=== PATIENT | female | born 1980 | race Caucasian/White ===

== ENCOUNTER 2019-10-10 12:26 | Inpatient (IN) | payer OTHER ==
[~2019-10-10] VITALS: Ht 170.2 cm; Wt 81.0 kg
[2019-10-10 12:47] VITALS: BP 131/86
[2019-10-10 13:05] LABS: BASOPHILS # (AUTO) 0.02 x10^3/uL (0-0.1); BASOPHILS % (AUTO) 0 % (0-1); EOSINOPHILS # (AUTO) 0.02 x10^3/uL (0-0.4); EOSINOPHILS % (AUTO) 0 % (1-7); LYMPHOCYTES # (AUTO) 0.85 x10^3/uL (1-3.4); LYMPHOCYTES % (AUTO) 12 % (22-44); MD NO; MEAN CORPUSCULAR HEMOGLOBIN 32.7 pg (27.0-34.8); MEAN CORPUSCULAR HGB CONC 33.4 g/dL (32.4-35.8); MEAN PLATELET VOLUME 7.5 fL (7.4-10.4); MONOCYTES # (AUTO) 0.54 x10^3/uL (0.2-0.8); MONOCYTES % (AUTO) 8 % (2-9); NEUTROPHILS # (AUTO) 5.72 x10^3/uL (1.8-6.8); NEUTROPHILS % (AUTO) 80 % (42-75); PLATELET COUNT 228 x10^3/uL (130-400); RED BLOOD COUNT 4.09 x10^6/uL (3.82-5.3); RED CELL DISTRIBUTION WIDTH 12.8 % (9.6-15.2)
[2019-10-10 13:16] LABS: ALBUMIN 2.4 g/dL (3.4-5.0); ANION GAP 8 mmol/L (5-15); CALCIUM 8.8 mg/dL (8.5-10.1); CHLORIDE 108 mmol/L (98-107)
[2019-10-10 13:19] LABS: ALANINE AMINOTRANSFERASE 285 U/L (12-78); ALKALINE PHOSPHATASE 183 U/L (45-117); BILIRUBIN,TOTAL 0.5 mg/dL (0.2-1.0); CREATININE 0.76 mg/dL (0.55-1.02); TOTAL PROTEIN 6.6 g/dL (6.4-8.2)
[2019-10-10 13:47] LABS: MICROSCOPIC INDICATED
[2019-10-10 13:58] LABS: CREATININE,URINE RANDOM 21.5 mg/dL
[2019-10-10] MEDS ORDERED: OXYTOCIN 30U/ 0.9% NaCL 500ML 500 ML IV ONE (14:18)
[2019-10-10] MEDS ORDERED: FENTANYL PF 100 MCG/2ML IVPush PRN (14:30)
[2019-10-10] MEDS ORDERED: TERBUTALINE 1 MG/ML, 1ML SQ PRN (14:30)
[2019-10-10] MEDS ORDERED: MAGNESIUM SULFATE PMX 4GM/100M 100 ML IVPB ONE (14:30)
[2019-10-10] MEDS ORDERED: TERBUTALINE 1 MG/ML, 1ML IVPush PRN (14:30)
[2019-10-10] MEDS ORDERED: METOCLOPRAMIDE 5 MG/ML, 2ML IVPush PRN (14:30)
[2019-10-10] MEDS ORDERED: MISOPROSTOL 25 MCG TABLET VG PRN (14:30)
[2019-10-10] MEDS ORDERED: SODIUM CITRATE/CITRIC ACID 30 ML UDC PO PRN (14:30)
[2019-10-10] MEDS ORDERED: FENTANYL PF 100 MCG/2ML IV PRN (14:30)
[2019-10-10] MEDS ORDERED: ONDANSETRON 2MG/ML, 2ML IVPush PRN (14:30)
[2019-10-10] MEDS: LACTATED RINGERS 1,000 ML IV PRN (14:53)
[2019-10-10] MEDS ORDERED: MAGNESIUM SULFATE PMX 4GM/100M 100 ML ONE (14:57)
[2019-10-10] MEDS ORDERED: LIDOCAINE 1%, 20ML ONE (15:05)
[2019-10-10] MEDS ORDERED: MISOPROSTOL 25 MCG TABLET ONE ×2 (15:05→22:04)
[2019-10-10] MEDS ORDERED: MISOPROSTOL 200 MCG TABLET ONE (15:06)
[2019-10-10] MEDS ORDERED: OXYTOCIN 30U/ 0.9% NaCL 500ML 500 ML ONE (15:06)
[2019-10-10] MEDS ORDERED: NEWBORN KIT ONE (15:06)
[2019-10-10] MEDS: MAGNESIUM SULF. PMX 20GM/500ML 500 ML IV SCH ×2 (15:27→23:55)
[2019-10-10] MEDS ORDERED: LACTATED RINGERS 1,000 ML IVBOLUS PRN ×2 (15:30→20:00)
[2019-10-10] MEDS ORDERED: FENTANYL/BUPIV./NS/PF 250 ML EPIDCONT ONE (15:30)
[2019-10-10] MEDS ORDERED: FENTANYL PF 500 MCG, BUPIVACAINE/PF 0.5%, 30ML 62.5 ML in SODIUM CHLORIDE 0.9% 177.5 ML EPIDCONT ONE (16:00)
[2019-10-10] MEDS ORDERED: FENTANYL PF 500 MCG, BUPIVACAINE/PF 0.5%, 30ML 62.5 ML in SODIUM CHLORIDE 0.9% 177.5 ML EPIDCONT SCH (16:00)
[2019-10-10] MEDS ORDERED: BUPIVACAINE 0.25% ONE (19:37)
[2019-10-10] MEDS ORDERED: FENTANYL/BUPIV./NS/PF 250 ML EPIDCONT SCH (19:58)
[2019-10-10] MEDS ORDERED: LACTATED RINGERS 1,000 ML IV SCH (19:58)
[2019-10-10] MEDS ORDERED: EPHEDRINE 50 MG/ML, 1ML IVPush PRN (20:00)
[2019-10-10 20:48] LABS: BASOPHILS # (AUTO) 0.02 x10^3/uL (0-0.1); BASOPHILS % (AUTO) 0 % (0-1); EOSINOPHILS # (AUTO) 0.01 x10^3/uL (0-0.4); EOSINOPHILS % (AUTO) 0 % (1-7); LYMPHOCYTES # (AUTO) 0.87 x10^3/uL (1-3.4); LYMPHOCYTES % (AUTO) 12 % (22-44); MD NO; MEAN CORPUSCULAR HEMOGLOBIN 32.7 pg (27.0-34.8); MEAN CORPUSCULAR HGB CONC 33.8 g/dL (32.4-35.8); MEAN CORPUSCULAR VOLUME 96.9 fL (80-100); MEAN PLATELET VOLUME 7.8 fL (7.4-10.4); MONOCYTES % (AUTO) 7 % (2-9); NEUTROPHILS # (AUTO) 5.79 x10^3/uL (1.8-6.8); NEUTROPHILS % (AUTO) 80 % (42-75); PLATELET COUNT 227 x10^3/uL (130-400); RED BLOOD COUNT 4.02 x10^6/uL (3.82-5.3); RED CELL DISTRIBUTION WIDTH 13.1 % (9.6-15.2)
[2019-10-10 20:51] LABS: ALANINE AMINOTRANSFERASE 306 U/L (12-78); ALBUMIN 2.4 g/dL (3.4-5.0); ANION GAP 10 mmol/L (5-15); CALCIUM 7.8 mg/dL (8.5-10.1); CHLORIDE 108 mmol/L (98-107); CREATININE 0.75 mg/dL (0.55-1.02)
[2019-10-10 20:53] LABS: ALKALINE PHOSPHATASE 186 U/L (45-117); BILIRUBIN,TOTAL 0.6 mg/dL (0.2-1.0); TOTAL PROTEIN 6.3 g/dL (6.4-8.2)
[2019-10-10] MEDS ORDERED: ONDANSETRON 2MG/ML, 2ML ONE (22:16)
[2019-10-11] MEDS ORDERED: ACETAMINOPHEN 325 MG TABLET ONE (01:27)
[2019-10-11] MEDS ORDERED: OXYTOCIN 30U/ 0.9% NaCL 500ML 500 ML ONE (01:27)
[2019-10-11] MEDS: ACETAMINOPHEN 325 MG TABLET PO PRN ×2 (01:36→14:40)
[2019-10-11] MEDS: OXYTOCIN 30U/ 0.9% NaCL 500ML 500 ML IV SCH ×3 (02:55→22:55)
[2019-10-11] MEDS ORDERED: DOCUSATE 100 MG CAPSULE PO PRN (03:00)
[2019-10-11] MEDS ORDERED: SIMETHICONE 80 MG CHEW TAB PO PRN (03:00)
[2019-10-11] MEDS ORDERED: ONDANSETRON 2MG/ML, 2ML IV PRN (03:00)
[2019-10-11] MEDS ORDERED: OXYcodone IR 5MG TABLET PO PRN (03:00)
[2019-10-11] MEDS ORDERED: ACETAMINOPHEN 325 MG TABLET PO PRN (03:00)
[2019-10-11 07:58] LABS: MEAN CORPUSCULAR HEMOGLOBIN 32.9 pg (27.0-34.8); MEAN CORPUSCULAR HGB CONC 33.3 g/dL (32.4-35.8); MEAN CORPUSCULAR VOLUME 98.8 fL (80-100); MEAN PLATELET VOLUME 7.6 fL (7.4-10.4); PLATELET COUNT 199 x10^3/uL (130-400); RED BLOOD COUNT 3.92 x10^6/uL (3.82-5.3); RED CELL DISTRIBUTION WIDTH 13.1 % (9.6-15.2)
[2019-10-11 08:06] LABS: ALANINE AMINOTRANSFERASE 323 U/L (12-78); CHLORIDE 107 mmol/L (98-107); CREATININE 0.61 mg/dL (0.55-1.02)
[2019-10-11 08:08] LABS: ALKALINE PHOSPHATASE 159 U/L (45-117); ANION GAP 5 mmol/L (5-15); BILIRUBIN,TOTAL 0.5 mg/dL (0.2-1.0); TOTAL PROTEIN 5.9 g/dL (6.4-8.2)
[2019-10-11 08:16] LABS: BASOPHILS # (AUTO) 0.01 x10^3/uL (0-0.1); BASOPHILS % (AUTO) 0 % (0-1); EOSINOPHILS # (AUTO) 0.02 x10^3/uL (0-0.4); EOSINOPHILS % (AUTO) 0 % (1-7); LYMPHOCYTES # (AUTO) 0.85 x10^3/uL (1-3.4); LYMPHOCYTES % (AUTO) 9 % (22-44); MD SCAN; MONOCYTES # (AUTO) 0.81 x10^3/uL (0.2-0.8); MONOCYTES % (AUTO) 8 % (2-9); NEUTROPHILS # (AUTO) 7.92 x10^3/uL (1.8-6.8); NEUTROPHILS % (AUTO) 83 % (42-75)
[2019-10-11 08:45] VITALS: BP 116/64
[2019-10-11] MEDS ORDERED: IBUPROFEN 800 MG TABLET ONE ×2 (08:50→14:35)
[2019-10-11] MEDS: IBUPROFEN 800 MG TABLET PO PRN ×2 (08:51→16:46)
[2019-10-11] MEDS: MAGNESIUM SULF. PMX 20GM/500ML 500 ML IV SCH ×2 (10:29→20:07)
[2019-10-11] MEDS: LACTATED RINGERS 1,000 ML IV PRN (12:38)
[2019-10-11 12:41] VITALS: BP 118/69
[2019-10-11] MEDS ORDERED: PRENATAL VIT/IRON/FA 1 EACH TABLET ONE (13:22)
[2019-10-11] MEDS: PRENATAL VIT/IRON/FA 1 EACH TABLET PO SCH (13:23)
[2019-10-11 16:47] VITALS: BP 122/76
[2019-10-11 17:23] LABS: BASOPHILS # (AUTO) 0.02 x10^3/uL (0-0.1); BASOPHILS % (AUTO) 0 % (0-1); EOSINOPHILS # (AUTO) 0.04 x10^3/uL (0-0.4); EOSINOPHILS % (AUTO) 1 % (1-7); LYMPHOCYTES # (AUTO) 1.13 x10^3/uL (1-3.4); LYMPHOCYTES % (AUTO) 13 % (22-44); MD NO; MEAN CORPUSCULAR HEMOGLOBIN 32.7 pg (27.0-34.8); MEAN CORPUSCULAR HGB CONC 33.1 g/dL (32.4-35.8); MEAN CORPUSCULAR VOLUME 98.9 fL (80-100); MEAN PLATELET VOLUME 7.9 fL (7.4-10.4); MONOCYTES # (AUTO) 0.66 x10^3/uL (0.2-0.8); MONOCYTES % (AUTO) 8 % (2-9); NEUTROPHILS # (AUTO) 6.73 x10^3/uL (1.8-6.8); NEUTROPHILS % (AUTO) 78 % (42-75); PLATELET COUNT 229 x10^3/uL (130-400); RED CELL DISTRIBUTION WIDTH 13.4 % (9.6-15.2)
[2019-10-11 18:09] LABS: ALANINE AMINOTRANSFERASE 293 U/L (12-78); ALBUMIN 2.1 g/dL (3.4-5.0); ANION GAP 5 mmol/L (5-15); CALCIUM 7.1 mg/dL (8.5-10.1); CHLORIDE 109 mmol/L (98-107); CREATININE 0.67 mg/dL (0.55-1.02)
[2019-10-11 18:12] LABS: ALKALINE PHOSPHATASE 169 U/L (45-117); BILIRUBIN,TOTAL 0.2 mg/dL (0.2-1.0); TOTAL PROTEIN 6.1 g/dL (6.4-8.2)
[2019-10-11 19:47] VITALS: BP 119/76
[2019-10-12 00:12] VITALS: BP 132/82
[2019-10-12] MEDS ORDERED: IBUPROFEN 800 MG TABLET ONE (00:14)
[2019-10-12] MEDS: IBUPROFEN 800 MG TABLET PO PRN ×2 (00:17→07:57)
[2019-10-12 04:45] VITALS: BP 123/78
[2019-10-12 06:52] LABS: BASOPHILS # (AUTO) 0.03 x10^3/uL (0-0.1); BASOPHILS % (AUTO) 0 % (0-1); EOSINOPHILS # (AUTO) 0.04 x10^3/uL (0-0.4); EOSINOPHILS % (AUTO) 1 % (1-7); LYMPHOCYTES # (AUTO) 0.98 x10^3/uL (1-3.4); LYMPHOCYTES % (AUTO) 15 % (22-44); MD NO; MEAN CORPUSCULAR HEMOGLOBIN 32.9 pg (27.0-34.8); MEAN CORPUSCULAR HGB CONC 33.3 g/dL (32.4-35.8); MEAN CORPUSCULAR VOLUME 98.8 fL (80-100); MEAN PLATELET VOLUME 7.4 fL (7.4-10.4); MONOCYTES # (AUTO) 0.54 x10^3/uL (0.2-0.8); MONOCYTES % (AUTO) 8 % (2-9); NEUTROPHILS # (AUTO) 5.14 x10^3/uL (1.8-6.8); NEUTROPHILS % (AUTO) 76 % (42-75); PLATELET COUNT 217 x10^3/uL (130-400); RED BLOOD COUNT 3.53 x10^6/uL (3.82-5.3); RED CELL DISTRIBUTION WIDTH 13.1 % (9.6-15.2)
[2019-10-12 06:54] LABS: ALANINE AMINOTRANSFERASE 244 U/L (12-78); ANION GAP 6 mmol/L (5-15); CALCIUM 6.9 mg/dL (8.5-10.1); CHLORIDE 111 mmol/L (98-107); CREATININE 0.67 mg/dL (0.55-1.02)
[2019-10-12 06:56] LABS: ALKALINE PHOSPHATASE 155 U/L (45-117); BILIRUBIN,TOTAL 0.3 mg/dL (0.2-1.0); TOTAL PROTEIN 5.3 g/dL (6.4-8.2)
[2019-10-12] MEDS: PRENATAL VIT/IRON/FA 1 EACH TABLET PO SCH (07:57)
[2019-10-12 08:00] VITALS: BP 137/84
[2019-10-12] MEDS: OXYTOCIN 30U/ 0.9% NaCL 500ML 500 ML IV SCH (08:55)
== END 2019-10-12 11:15 | disposition home or self-care (01) | DRG 807 ==
LOC: LDOP 12:26 → LDIP 14:16 → 2NW 10-12 00:36
PROVIDERS: ADMIT Obstetrics & Gynecology; ATTEND Obstetrics & Gynecology
PROC: 10E0XZZ Delivery of Products of Conception, External Approach (ICD-10-PCS; principal; 2019-10-10)
DX: O14.24 HELLP syndrome, complicating childbirth (principal); Z37.0 Single live birth; Z3A.37 37 weeks gestation of pregnancy; Z98.49 Cataract extraction status, unspecified eye; Z88.5 Allergy status to narcotic agent; O09.519 Supervision of elderly primigravida, unspecified trimester; O14.94 Unspecified pre-eclampsia, complicating childbirth; O75.89 Other specified complications of labor and delivery; R74.0 Nonspecific elevation of levels of transaminase and lactic acid dehydrogenase [LDH]
CPT/HCPCS: 36415; 80053; 81001; 82570; 83735; 84156; 84550; 85025; 86592; 86850; 86900; 87081; G0378; J2405; J2590; J3010; J3475; J7120